=== PATIENT | male | born 1995 | race Hispanic/Latino ===

== ENCOUNTER 2017-05-17 18:48 | Emergency (ER) | payer BC ==
[2017-05-17 18:56] VITALS: BP 131/78; PULSE 87; RESP 20; TEMP 97.5; O2SAT 99
[2017-05-17] MEDS ORDERED: Lidocaine 5% Patch TD STA (19:13)
[2017-05-17] MEDS ORDERED: Lidocaine 5% Patch TD ONE (19:18)
--- NOTE | 2017-05-17 20:04 | C.PDOC ---
History Of Present Illness 21 year old male presents to the ED c/o right sided upper back pain that occurred after bending over ti citrus picker and object. Patient reports his pain worsens with movement. Patient reports he tried using a muscle rub cream wit no relief. Patient's pain is non radiating, denies weakness, numbness, injury, fall , trauma, CP, SOB. Time Seen by Provider: 05/17/17 19:08 Chief Complaint (Nursing): Back Pain History Per: Patient History/Exam Limitations: no limitations Onset/Duration Of Symptoms: Days Current Symptoms Are (Timing): Still Present Quality Of Discomfort: "Pain" Previous Symptoms: Back Pain Exacerbating Factor(s): Movement Recent travel outside of the [place]: No Additional History Per: Patient Past Medical History Reviewed: Historical Data, Nursing Documentation, Vital Signs Vital Signs: Last Vital Signs Temp 97.5 F L 05/17/17 18:55 Pulse 87 05/17/17 18:55 Resp 20 05/17/17 18:55 BP 131/78 05/17/17 18:55 Pulse Ox 99 05/17/17 20:18 - Medical History PMH: No Chronic Diseases Surgical History: Tonsillectomy - [facility] TONSILLECTOMY/ADENOIDEC (07/13/00) Family History: States: Unknown Family Hx - Social History Hx Alcohol Use: Yes Hx Substance Use: No Review Of Systems Constitutional: Negative for: Fever, Chills Cardiovascular: Negative for: Chest Pain Respiratory: Negative for: Shortness of Breath Gastrointestinal: Negative for: Abdominal Pain Musculoskeletal: Positive for: Back Pain Skin: Negative for: Rash Neurological: Negative for: Weakness, Numbness Physical Exam - Physical Exam Appears: Non-toxic, No Acute Distress Skin: Normal Color, Warm, Dry Head: Atraumatic, Normacephalic Eye(s): bilateral: Normal Inspection Nose: No Discharge Oral Mucosa: Moist Neck: Normal ROM, Supple Chest: Symmetrical Back: Muscle Spasm (palpable ), Paraspinal Tenderness (right parathoracic) Extremity: Normal ROM, No Tenderness, No Swelling Neurological/Psych: Oriented x3, Normal Motor, Normal Sensation Gait: Steady ED Course And Treatment O2 Sat by Pulse Oximetry: 99 (ON RA) Pulse Ox Interpretation: Normal Medical Decision Making Medical Decision Making: Impression: upper back pain Plan: * Lidocaine 1 ea TD * Toradol 30 mg IM * Valium 5 mg PO On Re-Eval patient sitting comfortably and reports feeling better. Rx given. Recommend analgesics rest and to apply heat Disposition Counseled Patient/Family Regarding: Diagnosis, Need For Followup, Rx Given - Disposition Referrals: Yuniel Patrick MD [Staff Provider] - Disposition: HOME/ ROUTINE Disposition Time: 20:03 Condition: IMPROVED Additional Instructions: Apply heat to area 15 minutes three times a day. Take Motrin as needed for pain every 6 hours, with food to not upset stomach. Take Flexeril for muscle pain and spasm, caution can cause drowsiness. Follow up with orthopedic if pain persists over one week. Prescriptions: Cyclobenzaprine [Cyclobenzaprine HCl] 10 mg PO TID #21 tab Ibuprofen [Motrin] 600 mg PO Q8 #30 tab Instructions: Upper Back Pain (DC) Forms: [facility] (Norwegian), Work Excuse - POA Present On Arrival: None - Clinical Impression Clinical Impression: Thoracic back sprain - PA / [employer] / Resident Statement MD/DO has reviewed & agrees with the documentation as recorded. - Scribe Statement The provider has reviewed the documentation as recorded by the Scribe Amos Lyn All medical record entries made by the Scribscot were at my direction and personally dictated by me. I have reviewed the chart and agree that the record accurately reflects my personal performance of the history, physical exam, medical decision making, and the department course for this patient. I have also personally directed, reviewed, and agree with the discharge instructions and disposition.
== END 2017-05-17 20:18 | disposition home or self-care (01) ==
LOC: C.ER 18:48
DX: S23.3XXA Sprain of ligaments of thoracic spine, initial encounter (principal); X50.0XXA Overexertion from strenuous movement or load, initial encounter; Y92.9 Unspecified place or not applicable
CPT/HCPCS: 96372; 99283; J1885